=== PATIENT | female | born 1980 | race Caucasian/White ===

== ENCOUNTER 2017-09-19 08:23 | Outpatient (CLI) | payer BC ==
[2017-09-19 09:51] LABS: Glucose 82 mg/dL (70-105)
== END 2017-09-19 08:24 | disposition home or self-care (01) ==
LOC: LABBT 08:23
PROVIDERS: ATTEND Orthopaedic Surgery
DX: Z01.812 Encounter for preprocedural laboratory examination (principal); M77.11 Lateral epicondylitis, right elbow
CPT/HCPCS: 82947

== ENCOUNTER 2017-09-20 07:31 | Day surgery (SDC) | payer BC ==
[2017-09-19 08:49] VITALS: BMI 27.1
[2017-09-20] MEDS ORDERED: Bupivacaine HCl 0.5%/Epinephrine 1:200,000/PF 30 ml Vial ONE (09:18)
[2017-09-20] MEDS ORDERED: CEFAZOLIN/Water 2 GM/20 ML SYRINGE ONE (09:35)
[2017-09-20] MEDS ORDERED: Scopolamine 1.5 mg/72 hour Patch ONE (09:41)
[2017-09-20] MEDS ORDERED: Fentanyl 100 MCG/2 ML VIAL ONE (09:50)
[2017-09-20] MEDS ORDERED: Midazolam HCl 2 mg/2 ml Vial ONE (09:50)
[2017-09-20] MEDS ORDERED: Diprivan 20 ML ONE ×2 (10:24)
[2017-09-20] MEDS ORDERED: HYDROmorphone 0.5 MG/0.5 ML SYRINGE ONE ×2 (10:51→11:02)
[2017-09-20] MEDS ORDERED: HYDROcodone/Acetaminophen 5/325 mg Tablet ONE (12:53)
[2017-09-20] MEDS ORDERED: Dexamethasone 20 MG/5 ML VIAL ONE (15:20)
[2017-09-20] MEDS ORDERED: Ondansetron HCl/PF 4 MG/2 ML Vial ONE (15:20)
[2017-09-20] MEDS ORDERED: Ketorolac Tromethamine 30 MG/ML VIAL ONE (15:20)
[2017-09-20] MEDS ORDERED: Propofol 200 MG/20 ML VIAL ONE (15:20)
--- NOTE | 2017-09-20 23:02 | OP ---
DATE OF PROCEDURE: 09/20/2017 PREOPERATIVE DIAGNOSIS: Right tennis elbow/lateral epicondylitis. POSTOPERATIVE DIAGNOSIS: Right tennis elbow/lateral epicondylitis. PROCEDURE PERFORMED: Open tennis elbow release/Nirschl procedure. STAFF: Chucky Bonilla M.D. ANIMAL SCIENCE PROFESSOR: None. ANESTHESIA: Eugene Strauss M.D. The patient received LMA with 10 mL of 0.5% Marcaine with epinephri ne. TOURNIQUET TIME: 28 minutes. IMPLANTS: None. ANTIBIOTICS: Ancef 2 grams. COMPLICATIONS: None. ESTIMATED BLOOD LOSS: 10 mL. HISTORY OF PRESENT ILLNESS: Ms. Snell is a 37-year-old female, who presents to me with right elbow pain. The patient has had pain since 07/2016 where he is right hand dominant, works at [employer] in is about [employer]. She has had several injections, which gave her good relief, but the patient desired for release of her right tennis elbow. She understood the risks and benefits of pain, scar, bleedin g, infection, continued pain despite surgical intervention, damage to vital structures, decreased ran ge of motion or strength, failure of procedure. She understood the risks and benefits and elected to proceed. PROCEDURE IN DETAIL: Timeout was performed designating the patient's right upper extremity as the op erative site based on sight, consents, and markings. An oblique incision was made just over the ____ _ incision was made through down to the fascia. We then split the fascia in line with the extensor c arpi radialis longus over the epicondyle up towards the fascia of the brachialis. I came down releas e the extensor carpi radialis brevis in its entirety. I saw the beginning fibers of the capsule as w ell as I tried to stay above the midline, I saw the fibers of the patient's lateral and collateral li gaments, which were intact, which was stable on exam. I taken the tendon off, I used curette and vera hatch to nibble and scrape to create a bleeding edge. I then washed the wound. I did not violate the capsule. I saw that there is release. We then also removed some of the tendon distally from underneath the extensor carpi radialis longus. I then took the fascia of the longus and reapproximat ed over the top to close the space. I washed and closed with 2-0 and 3-0 nylon. I then placed 10 mL of Marcaine 0.5% with epinephrine subcu. The patient will do no heavy lifting. I will see her back in my clinic in about 2 weeks.
== END 2017-09-20 13:20 | disposition home or self-care (01) ==
LOC: SDC 07:31
PROVIDERS: ATTEND Orthopaedic Surgery
PROC: 0LN30ZZ Release Right Upper Arm Tendon, Open Approach (ICD-10-PCS; principal; 2017-09-20)
DX: M77.11 Lateral epicondylitis, right elbow (principal); E03.9 Hypothyroidism, unspecified; Z79.899 Other long term (current) drug therapy; Z88.5 Allergy status to narcotic agent; Z88.8 Allergy status to other drugs, medicaments and biological substances; Z98.890 Other specified postprocedural states
CPT/HCPCS: 96374; J0670; J1100; J1170; J1885; J2250; J2405; J2704; J3010

== ENCOUNTER 2018-01-04 10:07 | Outpatient (CLI) | payer BC | END 2018-01-04 10:08 | disposition home or self-care (01) | LOC: BICMAMMO 10:07 | PROVIDERS: ATTEND Student in an Organized Health Care Education/Training Program | DX: Z12.31 Encounter for screening mammogram for malignant neoplasm of breast (principal); Z80.3 Family history of malignant neoplasm of breast | CPT/HCPCS: 77063; 77067 ==

== ENCOUNTER 2018-02-25 09:28 | Outpatient (CLI) | payer BC | END 2018-02-25 09:29 | disposition home or self-care (01) | LOC: CTENTCT 09:28 | PROVIDERS: ATTEND Otolaryngology Plastic Surgery within the Head & Neck | DX: J32.8 Other chronic sinusitis (principal) | CPT/HCPCS: 70486 ==

== ENCOUNTER 2019-02-18 09:13 | Outpatient (CLI) | payer BC ==
--- NOTE | 2019-02-18 10:11 | MMO ---
Bilateral MAMMO Bilat Screen [facility]. CLINICAL HISTORY: Patient is 39 years old and is seen for screening. The patient has the following family history of breast cancer: mother, at age 61 and paternal grandmother. The patient has no personal history of cancer. VIEWS: The views performed were: bilateral craniocaudal with tomosynthesis and bilateral mediolateral oblique with tomosynthesis. FILMS COMPARED: The present examination has been compared to prior imaging studies performed at [facility] on 07/15/2015 and 01/04/2018. MAMMOGRAM FINDINGS: There are scattered fibroglandular densities. There are no suspicious masses, suspicious calcifications, or new areas of architectural distortion. IMPRESSION: THERE IS NO MAMMOGRAPHIC EVIDENCE OF MALIGNANCY. A ROUTINE FOLLOW-UP MAMMOGRAM IN 1 YEAR IS RECOMMENDED. THE RESULTS OF THIS EXAM WERE SENT TO THE PATIENT. ACR BI-RADS Category 1 - Negative MAMMOGRAPHY NOTE: 1. A negative mammogram report should not delay a biopsy if a dominant of clinically suspicious mass is present. 2. Approximately 10% to 15% of breast cancers are not detected by mammography. 3. Adenosis and dense breasts may obscure an underlying neoplasm. Reported by: MERLYN AUGUSTINE MD Electonically Signed: [id number]
== END 2019-02-18 09:14 | disposition home or self-care (01) ==
LOC: BICMAMMO 09:13
PROVIDERS: ATTEND Student in an Organized Health Care Education/Training Program
DX: Z12.31 Encounter for screening mammogram for malignant neoplasm of breast (principal); Z80.3 Family history of malignant neoplasm of breast
CPT/HCPCS: 77063; 77067

== ENCOUNTER 2020-10-21 14:15 | Outpatient (CLI) | payer BC | END 2020-10-21 14:16 | disposition home or self-care (01) | LOC: BICMAMMO 14:15 | PROVIDERS: ATTEND Student in an Organized Health Care Education/Training Program | DX: N63.11 Unspecified lump in the right breast, upper outer quadrant (principal) | CPT/HCPCS: G0279 ==